=== PATIENT | female | born 1950 | race Caucasian/White ===

== ENCOUNTER → 2020-03-10 | Outpatient (CLI) | payer MEDICARE, OTHER | LOC: KOH-I 13:30 | DX: R42 Dizziness and giddiness (principal); G31.9 Degenerative disease of nervous system, unspecified | CPT/HCPCS: 70450 ==

== ENCOUNTER → 2021-03-30 | Outpatient (CLI) | payer MEDICARE, OTHER | LOC: KOH-I 14:44 | DX: I70.223 Atherosclerosis of native arteries of extremities with rest pain, bilateral legs (principal) | CPT/HCPCS: 93925 ==

== ENCOUNTER → 2021-07-16 | Outpatient (CLI) | payer MEDICARE, OTHER ==
[2021-07-16 10:50] LABS: HEMOGLOBIN 13.6 gm/dl (12.3-15.3); RED BLOOD COUNT 4.57 M/UL (4.00-5.10); WHITE BLOOD COUNT 9.1 K/UL (4.5-11.0)
== END ==
LOC: LAB 10:22
PROVIDERS: Physician Assistant Medical
DX: E11.9 Type 2 diabetes mellitus without complications (principal); R53.83 Other fatigue; E78.5 Hyperlipidemia, unspecified; E55.9 Vitamin D deficiency, unspecified
CPT/HCPCS: 36415; 80053; 80061; 83036; 84439; 84443; 85025